=== PATIENT | female | born 1995 | race Caucasian/White ===

== ENCOUNTER 2016-12-07 13:37 | Emergency (ER) | payer SELFPAY ==
[2016-12-07 13:48] VITALS: BP 114/70
--- NOTE | 2016-12-07 14:54 | ERNOTE ---
Medical Problem HPI - Narrative Date of Service: 12/07/16 - General Chief Complaint: General Assessment Time Seen by Provider: 12/07/16 14:01 Source: patient Exam Limitations: no limitations - Immun/Allergies/Home Medications Immunizations: IMMUNIZATION HX Immunizations Up to Date Yes History of Influenza Vaccine Yes Allergies/Adverse Reactions: Allergies No Known Allergies Allergy (Unverified 12/07/16 13:50) Home Medications: HOME MEDICATIONS Albuterol Sulfate [Proair Hfa] 2 puff IH Q4H PRN #1 inhaler 12/07/16 [Last Taken Unknown] Azithromycin [Zithromax] 500 mg PO NOW #6 tab 12/07/16 [Last Taken Unknown] - History of Present History Narrative: Patient has been coughing for a week. She relates some colored sputum. Has been having ear ache with this. No fever. No CP or abdominal pain. No SOB. Has not seen anyone else for this. Mild ST but that has improved. No rash. No exertional SOB Timing: constant Severity: moderate Modifying Factors - (Improves): Present: other - nothing Modifying Factors - (Worsens): Present: other - nothing Review of Systems - Review of Systems Constitutional: Absent: fever EYE: Absent: eye discharge ENT: Present: nose congestion, sore throat. Absent: throat swelling Respiratory: Present: cough. Absent: shortness of breath Cardiology: Absent: chest pain Gastrointestinal/Abdominal: Absent: abdominal pain Neurological: Absent: weakness - Patient's Past Medical History Patient History - Medical: No pertinent hx Patient History - Cardiac/Respiratory: No pertinent hx Patient History - Cancer: No Hx of Cancer Patient History - Surgical Procedures: Cholecystectomy, D & C Patient History - Other: None - Social History Living Situations: home Psych History: Hx of Anxiety, Hx of Depression Smoking Status: Never smoker Have you smoked in the past 12 months: No Do you dip or chew tobacco: No - Immunizations Immunizations Up to Date: Yes History of Influenza Vaccine: Yes Physical Exam - Physical Exam General Appearance: Present: alert, no apparent distress, other - occasional cough. No distress. non-toxic, speakingin full sentences. No evidence of sepsis. Head Exam: Present: normal inspection Eye Exam: Normal inspection: bilateral, PERRL: bilateral Ears, Nose, Throat: Present: other - right TM erythema. 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 Mild posterior oropaharyngeal erythema. Neck: Present: normal inspection Respiratory: Present: no respiratory distress, normal breath sounds, no accessory muscle use, lungs clear Cardiovascular/Chest: Present: regular rate, rhythm Gastrointestinal/Abdominal: Present: normal bowel sounds, nontender, nondistended, soft Back Exam: Present: normal inspection Extremity Exam: Present: normal inspection Neurological Exam: Present: alert, normal mood/affect, no motor/sensory deficits Skin Exam: Present: normal color, warm/dry ED Progress - Vital Signs Patient's Vital Signs:: I have reviewed the patient's vital signs. Vital Signs: Vital Signs 12/07/16 13:44 Temperature 36.8 C Pulse Rate 93 Respiratory 16 Rate Blood Pressure 114/70 O2 Sat by Pulse 96 Oximetry - X-Ray X-Ray #1 X-Ray: chest Interpretation: Reviewed by me X-ray Comments: I reviewed report - Progress/Reassessment Chief Complaint: General Assessment Progress Note-Subjective: 12/07/16 14:51 Will treat with ABx. She has right om abd bronchitis. Given right oM will cover with ABx. No distress, non-toxic, no hypoxia Departure - Departure Clinical Impression: Cough Disposition: Home self-care Condition: Stable Instructions: Cough, Adult, [id number] Additional Instructions: Rest. Fluids. Antibiotics and inhaler as directed. Follow-up with a doctor in 3 days for a re-check. Return for trouble breathing, fever or if your condition worsens or changes in any way. Prescriptions: Albuterol Sulfate [Proair Hfa] 2 puff IH Q4H PRN #1 inhaler PRN Reason: Shortness Of Breath Azithromycin [Zithromax] 500 mg PO NOW #6 tab
== END 2016-12-07 14:54 | disposition home or self-care (01) ==
LOC: ER 13:37
DX: R05 Cough (principal)